=== PATIENT | female | born 1990 | race Caucasian/White ===

== ENCOUNTER 2016-04-23 20:39 | Emergency (ER) | payer OTHER ==
--- NOTE | 2016-04-23 21:15 | ED ---
General Adult HPI - General Chief complaint: Upper Respiratory Infection Stated complaint: RAMIOR,Cough,R Side Cramping (6 mos preg) Time Seen by Provider: 04/23/16 20:58 Source: patient, RN notes reviewed Mode of arrival: ambulatory Limitations: no limitations - History of Present Illness Initial comments: Patient 26-year-old female who presents emergency room today who is approximately 6 months with chief complaint of cough congestion and rhinorrhea over the last 5 days. States started with a sore throat increased rhinorrhea has progressed to cough congestion. Denies any sputum production. States feels like it's getting stuck in her throat. Patient admits to feeling some pain in the chest area when she coughs. Patient also admits some cramping in the abdomen. Denies any vaginal bleeding or discharge. Denies any other complaints. Patient denies any recent fever, chills, shortness of breath, back pain, abdominal pain, nausea or vomiting, numbness or tingling, dysuria or hematuria, constipation or diarrhea, headaches or visual changes, or any other complaints. - Related Data Home Medications Medication Instructions Recorded Confirmed Pediatric Multivit Comb #25/FA 600 mcg PO DAILY 04/23/16 04/23/16 [Flintstones Multivit Chew Tab] Allergies Allergy/AdvReac Type Severity Reaction Status Date / Time No Known Allergies Allergy Verified 04/23/16 21:03 Review of Systems ROS Statement: Those systems with pertinent positive or pertinent negative responses have been documented in the HPI. ROS Other: All systems not noted in ROS Statement are negative. Past Medical History Additional Past Medical History / Comment(s): MISSED AB -NOT SURE OF DATE History of Any Multi-Drug Resistant Organisms: None Reported Past Surgical History: Tonsillectomy Past Anesthesia/Blood Transfusion Reactions: Postoperative Nausea & Vomiting ( PONV) Past Psychological History: No Psychological Hx Reported Smoking Status: Never smoker Past Alcohol Use History: Occasional Past Drug Use History: None Reported - Past Family History Mother Family Medical History: No Reported History General Exam Limitations: no limitations Course Vital Signs 04/23/16 20:46 Temperature 98.7 F Pulse Rate 100 Respiratory 20 Rate Blood Pressure 126/72 O2 Sat by Pulse 100 Oximetry Medical Decision Making - Medical Decision Making Patient reexamined at this time shows no signs of distress. Influenza B- positive. Updated of the results. Patient will be discharged home. Advised Tamiflu not recommended after the first 48 hours. Advised follow-up the family doctor over the next 2 days. Advised that she may use Tylenol as needed for pain and fever. Patient will be sent to mother-baby to make sure everything is well with . - Lab Data Lab Results 04/23/16 04/23/16 Range/Units 21:29 21:29 Influenza Type A RNA Not Detected (Not Detectd) Influenza Type B (PCR) Detected H (Not Detectd) Group A Strep Rapid Negative (Negative) Disposition Clinical Impression: Influenza B Disposition: HOME SELF-CARE Condition: Good Instructions: Influenza (ED) Additional Instructions: Please use Tylenol as needed for body aches and fevers. Please follow-up the OB /EXTENSION SUPERVISOR and family doctor over the next 2 days or return here to emergency room if any symptoms increase or worsen or for any other concerns. Time of Disposition: 22:16
[2016-04-23 22:40] VITALS: BP 100/51; PULSE 110; RESP 18; TEMP 100.4
== END 2016-04-23 22:40 | disposition home or self-care (01) ==
LOC: EC 20:39
DX: O99.512 Diseases of the respiratory system complicating pregnancy, second trimester (principal); J10.1 Influenza due to other identified influenza virus with other respiratory manifestations; Z3A.24 24 weeks gestation of pregnancy; Z79.899 Other long term (current) drug therapy
CPT/HCPCS: 87081; 87430; 87502; 99283

== ENCOUNTER 2016-08-01 20:16 | Inpatient (IN) | payer OTHER ==
[2016-08-01 20:55] VITALS: RESP 16
[2016-08-01] MEDS ORDERED: CARBOPROST TROMETHAMINE 250 MCG/ML 1 ML AMP IM PRN (21:00)
[2016-08-01] MEDS ORDERED: OXYTOCIN 10 UNIT/ML 1 ML VIAL IM PRN (21:00)
[2016-08-01] MEDS ORDERED: PENICILLIN G POTASSIUM 5,000,000 UNIT in DEXTROSE 5% IN WATER 100 ML IV STA ×2 (21:00)
[2016-08-01] MEDS ORDERED: OXYTOCIN 20 UNITS/1000 ML NS 1,000 ML IV SCH (21:00)
[2016-08-01] MEDS ORDERED: TERBUTALINE 1 MG/ML VIAL SQ PRN (21:00)
[2016-08-01] MEDS ORDERED: LIDOCAINE 1% (PF) 10 MG/ML (30 ML SDV) SQ PRN (21:00)
[2016-08-01] MEDS ORDERED: METHYLERGONOVINE 0.2 MG/ML 1 ML AMP IM PRN (21:00)
[2016-08-01] MEDS ORDERED: LACTATED RINGERS 1,000 ML IV SCH (21:00)
[2016-08-01] MEDS ORDERED: BUTORPHANOL 1 MG/ML 1 ML VIAL IV PRN (21:02)
[2016-08-01 21:36] LABS: Basophils % (A) 0 %; CH 32.8; CHCM 35.1; Eosinophils % (A) 0 %; HCT 36.8 % (34.0-46.0); HDW 2.76; HGB 12.5 gm/dL (11.4-16.0); Luc # (Auto) 0.11; Luc % (Auto) 2; Lymphocytes # (A) 1.1 k/uL (1.0-4.8); Lymphocytes % (A) 16 %; MCV 94.1 fL (80.0-100.0); Mean Platelet Volume 8.3; Monocytes # (A) 0.4 k/uL (0-1.0); Monocytes % (A) 6 %; Neutrophils # (A) 5.2 k/uL (1.3-7.7); Neutrophils % (A) 76 %; RBC 3.91 m/uL (3.80-5.40); RDW 14.1 % (11.5-15.5); WBC 6.9 k/uL (3.8-10.6); WBC (Perox) 7.25
--- NOTE | 2016-08-01 23:25 | P.HPOB ---
History of Present Illness H&P Date: 08/01/16 Chief Complaint: 40-2/7 weeks, spontaneous rupture of membranes, prolonged The patient is a 26-year-old 4 para 1021 admitted at 40-2/7 weeks as established by last menstrual period and confirmed by seven-week ultrasound. She is admitted with documented spontaneous rupture of membranes in early active labor. Rupture of membranes occurred approximately 12-14 hours prior to admission. Her has been otherwise uncomplicated. She does have a noted marginal cord insertion for which she has undergone serial growth ultrasounds which have demonstrated normal growth with normal fluid volume. She also has a history of a LEEP procedure for which she has had normal cervical lengths in the early portion of the and no complications. She had a positive antibody titer which was too weak to titer. Group B strep status is negative. Obstetrical history 4 para 1021 with 2 early miscarriages, one of which required D&C. She had 1 term delivery which was uncomplicated. Current statistics are listed in history of present illness. EDC of 2016 was established by last menstrual period and confirmed by seven-week ultrasound. Laboratory workup demonstrates a blood type of A+ with a positive anti-body screen for anti-M which was too weak to titer. Repeat antibody screen at 28 weeks was similar. The remainder of her laboratory workup was within normal limits. HIV is mistakenly reported on the record is positive and is confirmed as negative when reviewing the labs. One hour Glucola was within normal limits and group B strep status is negative. Gynecologic history is unremarkable with no history of any infections to include STDs. Review of Systems Review of systems is confined to history of present illness. Past Medical History Additional Past Medical History / Comment(s): MISSED AB -NOT SURE OF DATE History of Any Multi-Drug Resistant Organisms: None Reported Past Surgical History: Tonsillectomy Past Anesthesia/Blood Transfusion Reactions: Postoperative Nausea & Vomiting ( PONV) Smoking Status: Never smoker - Past Family History Mother Family Medical History: No Reported History Medications and Allergies Home Medications Medication Instructions Recorded Confirmed Type Pedi Multivit No.25/Folic Acid 600 mcg PO DAILY 04/23/16 08/01/16 History [Flintstones Multivit Chew Tab] Allergies Allergy/AdvReac Type Severity Reaction Status Date / Time No Known Allergies Allergy Verified 08/01/16 20:44 Exam - Vital Signs Vital signs: Vital Signs Temp Pulse Resp BP 08/01/16 20:52 97.0 F L 81 16 119/69 Intake and Output 08/01/16 08/01/16 08/02/16 14:59 22:59 06:59 Other: Weight 61.689 kg Patient Weight 08/02/16 06:59 Weight 61.689 kg In general, this is a well-developed, well-nourished white female in no acute distress though she is uncomfortable in labor. Her heart has a regular rhythm and rate without murmur. Her lungs are clear to auscultation bilaterally in all [place]. Her abdomen is gravid, nondistended, has normal active bowel sounds , is soft, nontender, and without any palpable masses aside from uterine fundus. Her extremities are without any cyanosis, clubbing, or significant edema and are nontender to palpation bilaterally. Digital cervical examination last performed by the nursing staff demonstrates her cervix to be 8 cm dilated, 100% effaced, and -1 in station with the vertex in presentation. Spontaneous rupture of membranes has been confirmed. Results Result Diagrams: 08/01/16 21:23 Assessment and Plan (1) Prolonged rupture of membranes Status: Acute (2) Active labor at term Status: Acute Plan: The patient has been admitted for active management of labor. Given the prolonged nature of rupture of membranes, antibiotic prophylaxis has been started. She will continue to have close maternal surveillance and expectant management will be practiced. She remains a good candidate for either IV or epidural analgesia, should she so choose.
[2016-08-02] MEDS ORDERED: BENZOCAINE SPRAY 57GM TOPICAL PRN (00:25)
[2016-08-02] MEDS ORDERED: ZOLPIDEM 5 MG TAB PO PRN (00:25)
[2016-08-02] MEDS ORDERED: WITCH HAZEL 1 EACH MED..PAD TOPICAL PRN (00:25)
[2016-08-02] MEDS ORDERED: HYDROCORTISONE 2.5% RECTAL CREAM 30 GM TUBE RECTAL PRN (00:25)
[2016-08-02] MEDS ORDERED: diphenhydrAMINE 50 MG CAP PO PRN (00:25)
[2016-08-02] MEDS ORDERED: ACETAMINOPHEN TAB 325 MG TAB PO PRN (00:25)
[2016-08-02] MEDS ORDERED: diphenhydrAMINE 25 MG CAP PO PRN (00:25)
[2016-08-02] MEDS ORDERED: SIMETHICONE 80 MG CHEWABLE PO PRN (00:25)
[2016-08-02] MEDS ORDERED: Acetaminophen-Codeine 300-30mg TAB PO PRN ×2 (00:25)
[2016-08-02] MEDS ORDERED: IBUPROFEN 600 MG TAB PO PRN (00:25)
[2016-08-02] MEDS ORDERED: diphenhydrAMINE 50 MG/ML 1 ML VIAL IVP PRN ×2 (00:25)
[2016-08-02] MEDS ORDERED: LANOLIN CREAM 5 GM TUBE TOPICAL PRN (00:25)
--- NOTE | 2016-08-02 00:29 | P.PROBDLV ---
Vaginal Delivery Note - . Vaginal Delivery Note: The patient is a 26-year-old 4 para 1021 admitted at 40-2/7 weeks by good dating parameters. She is admitted with documented spontaneous rupture of membranes for approximately 14 hours prior to delivery. Her has otherwise been essentially uncomplicated. She did have a marginal cord insertion which was followed with serial growth ultrasounds with adequate interval growth. Group B strep status was negative. On labor and delivery, she had Pitocin augmentation added and made fairly rapid progress through the active phase of labor to complete and then pushed over the course of approximately 30 minutes to a normal spontaneous vaginal delivery of a viable 7 lbs. 10 oz. baby boy with Apgars of 8 at 1 minute and 9 at 5 minutes delivered in the left occiput anterior position. The placenta was delivered spontaneously , intact, and grossly normal with a grossly normal, marginally inserted three- vessel cord. There was a small first-degree midline perineal laceration which was repaired with a gjawec-sm-[id number] stitch of 3-0 chromic catgut without difficulty over 1% lidocaine block. Estimated blood loss for the case was approximately 200 mL. There were no complications. All sponge, instrument, and needle counts were correct. Both mother and infant are resting comfortably in recovery.
[2016-08-02] MEDS ORDERED: PENICILLIN G POTASSIUM 2,500,000 UNIT in DEXTROSE 5% IN WATER 100 ML IV SCH ×2 (01:00)
[2016-08-02 02:57] VITALS: BMI 24.8
[2016-08-02] MEDS: SENNOSIDES-DOCUSATE SODIUM 1 EACH TAB PO SCH ×2 (08:47→20:58)
--- NOTE | 2016-08-02 12:37 | P.PNOBGVD ---
Subjective - Subjective Patient reports: Reports appetite normal, Reports voiding normally, Reports pain well controlled, Reports ambulating normally Tower: doing well, in NICU (The is receiving prophylactic antibiotics secondary to prolonged rupture of membranes and elevated bands cells on blood count.) Objective - Latest Vital Signs Latest vital signs: Vital Signs Temp Pulse Resp BP 08/02/16 08:00 97.7 F 63 16 126/75 08/02/16 04:00 98.0 F 79 16 119/71 08/02/16 02:20 97.3 F L 70 16 118/61 08/02/16 01:50 71 16 96/50 08/02/16 01:20 71 16 94/52 08/02/16 01:05 97.2 F L 72 16 100/49 08/02/16 00:50 96.8 F L 85 16 103/50 08/02/16 00:35 82 16 99/52 08/02/16 00:20 97.2 F L 91 16 123/59 08/01/16 21:04 97.2 F L 81 20 123/81 08/01/16 20:52 97.0 F L 81 16 119/69 Intake and Output 08/01/16 08/02/16 08/02/16 22:59 06:59 14:59 Intake Total 100 682.15 Output Total 200 Balance 100 482.15 Intake: IV 100 375 Lactated Ringers 1,000 ml 100 @ 125 mls/hr IV .Q8H MO Rx#:[id number] Intake, IV Titration 7.15 Amount Oxytocin 20 Units/1000 ml 7.15 Ns 1,000 ml @ 1 MILLIUNIT/MIN 3 mls/hr IV .Q24H MO Rx#:[id number] Oral 300 Output: Estimated Blood Loss 200 Other: # Voids 1 1 Weight 61.689 kg - Exam Extremities: Present: normal Abdomen: Present: normal appearance, soft Uterus: Present: normal, firm (The uterine fundus as tonic and nontender just below the umbilicus.) Assessment and Plan (1) Prolonged rupture of membranes Current Visit: Yes Status: Acute Code(s): O42.90 - ZORA ROM, 7TH0 BETW RUPT & ONST LABR, UNSP WEEKS OF GEST SNOMED Code(s): 856049437 (2) Active labor at term Current Visit: Yes Status: Acute Code(s): IXC8671 - SNOMED Code(s): 15191943 (3) Normal spontaneous vaginal delivery Narrative/Plan: Continue routine was care. The patient is considering possible discharge home tomorrow though the will need to remain in the hospital for one further day until blood cultures return. We will discuss these options in the morning. Current Visit: Yes Status: Acute Code(s): O80 - ENCOUNTER FOR FULL-TERM UNCOMPLICATED DELIVERY SNOMED Code(s): 22133774
[2016-08-03] MEDS: SENNOSIDES-DOCUSATE SODIUM 1 EACH TAB PO SCH (08:06)
[2016-08-03 08:09] VITALS: BP 114/65; PULSE 78; TEMP 98.3
--- NOTE | 2016-08-03 08:29 | P.DS ---
Providers Date of admission: 08/01/16 20:47 Expected date of discharge: 08/03/16 Attending physician: Kj Oconnor Primary care physician: Kj Oconnor - Discharge Diagnosis(es) (1) Prolonged rupture of membranes Current Visit: Yes Status: Acute (2) Active labor at term Current Visit: Yes Status: Acute (3) Normal spontaneous vaginal delivery Current Visit: Yes Status: Acute Hospital Course: The patient is a 26-year-old 4 para 10-1 admitted at 40-2/7 weeks by good dating parameters. She is admitted with spontaneous rupture of membranes in early active labor. She does report that rupture of membranes likely occurred approximately 12-14 hours prior to admission. Her was otherwise uncomplicated. On labor and delivery, she made rapid progress after Pitocin augmentation was started to complete and then pushed to a normal spontaneous vaginal delivery of a viable 7 lbs. 10 oz. baby boy with Apgars of 8 at 1 minute and 9 at 5 minutes. Her course was unremarkable vital signs remaining stable and her temperature was afebrile throughout. The infant was taken to the special care nursery for prophylactic antibiotics pending the outcome of blood culture at 48 hours. The patient was deemed stable for discharge by day #1 and was discharged home to follow-up in the office in 6 weeks' time routinely. Discharge instructions included calling for any significantly increased bleeding or foul-smelling lochia, significantly increased fever or abdominal pain, perineal complaints, breast complaints, or anything else that concerned her. She was additionally instructed to have nothing in the vagina for at least 6 weeks time to include intercourse. She understood her instructions and agrees to follow up as noted above. Discharge medications included continue vitamins as she is opted to breast-feed or at least pump. She was otherwise to take [id number] analgesic pain medications as needed. Maternal blood type is A+ and rubella status is immune. Procedures: #1. Pitocin augmentation #2. Normal spontaneous vaginal delivery #3. Repair of perineal laceration Patient Condition at Discharge: Good Plan - Discharge Summary New Discharge Prescriptions: No Action Pedi Multivit No.25/Folic Acid [Flintstones Multivit Chew Tab] 600 mcg PO DAILY Discharge Medication List Pedi Multivit No.25/Folic Acid [Flintstones Multivit Chew Tab] 600 mcg PO DAILY 03/09/17 [History] Follow up Appointment(s)/Referral(s): Kj Oconnor MD [Primary Care Provider] - 6 Weeks Discharge Disposition: HOME SELF-CARE
[2016-08-03 09:43] LABS: HIV-1/HIV-2 Ab Screen NONREAC (NON REAC)
== END 2016-08-03 10:15 | disposition home or self-care (01) | DRG 775 ==
LOC: FBPOP 20:16 → 4FBP 20:47
PROVIDERS: ADMIT Obstetrics & Gynecology; ATTEND Obstetrics & Gynecology
PROC: 10E0XZZ Delivery of Products of Conception, External Approach (ICD-10-PCS; principal; 2016-08-02)
PROC: 0HQ9XZZ Repair Perineum Skin, External Approach (ICD-10-PCS; 2016-08-02)
DX: O42.02 Full-term premature rupture of membranes, onset of labor within 24 hours of rupture (principal); O69.89X0 Labor and delivery complicated by other cord complications, not applicable or unspecified; O70.0 First degree perineal laceration during delivery; Z37.0 Single live birth; Z3A.40 40 weeks gestation of pregnancy
CPT/HCPCS: 59025; 84112; 85025; 86850; 86900; 86901; 87389; 88307; 99213

== ENCOUNTER 2019-03-23 22:04 | Emergency (ER) | payer OTHER ==
[2019-03-23 22:16] VITALS: TEMP 98.1
--- NOTE | 2019-03-23 22:43 | ED ---
Recheck HPI - General Chief Complaint: Headache Stated Complaint: eye swell/headache Time Seen by Provider: 03/23/19 22:16 Source: patient, RN notes reviewed, old records reviewed Mode of arrival: ambulatory Limitations: no limitations - History of Present Illness Initial Comments: This 29-year-old female DF she presents today for evaluation regards to left eye swelling or edema. Patient was seen at [facility] urgent care prior to arrival started on both eyedrops as well as oral antibiotics, patient states pain just increased since prior evaluation swelling is increased around her are and she has a mild headache. She denies any fevers, maybe some chills muscle aches. No other known sick contacts or travel history patient does not wear co ntacts no vision changes. MD Complaint: other (Left eye pain and swelling) -: hour(s) Symptoms Since Prior Visit: worsening swelling, worsening redness Associated Symptoms: chills Treatments Prior to Arrival: Given Antibiotics on - Related Data Home Medications Medication Instructions Recorded Confirmed Pedi Multivit No.25/Folic Acid 600 mcg PO DAILY 04/23/16 08/01/16 [Flintstones Multivit Chew Tab] Allergies Allergy/AdvReac Type Severity Reaction Status Date / Time No Known Allergies Allergy Verified 03/23/19 22:16 Review of Systems ROS Statement: Those systems with pertinent positive or pertinent negative responses have been documented in the HPI. ROS Other: All systems not noted in ROS Statement are negative. Past Medical History Additional Past Medical History / Comment(s): MISSED AB -NOT SURE OF DATE History of Any Multi-Drug Resistant Organisms: None Reported Past Surgical History: Tonsillectomy Past Anesthesia/Blood Transfusion Reactions: Postoperative Nausea & Vomiting (PONV) Past Psychological History: No Psychological Hx Reported Smoking Status: Never smoker Past Alcohol Use History: None Reported Past Drug Use History: None Reported - Past Family History Mother Family Medical History: No Reported History General Exam Limitations: no limitations General appearance: alert, in no apparent distress Head exam: Present: atraumatic, normocephalic, normal inspection Eye exam: Present: normal appearance, PERRL, EOMI, periorbital swelling, periorbital tenderness, other (Left eye swelling and edema erythema and tender ness). Absent: scleral icterus, conjunctival injection ENT exam: Present: normal exam, mucous membranes moist Neck exam: Present: normal inspection. Absent: tenderness, meningismus, lymphadenopathy Respiratory exam: Present: normal lung sounds bilaterally. Absent: respiratory distress, wheezes, rales, rhonchi, stridor Cardiovascular Exam: Present: regular rate, normal rhythm, normal heart sounds. Absent: systolic murmur, diastolic murmur, rubs, gallop, clicks GI/Abdominal exam: Present: soft, normal bowel sounds. Absent: distended, tenderness, guarding, rebound, rigid Extremities exam: Present: normal inspection, full ROM, normal capillary refill. Absent: tenderness, pedal edema, joint swelling, calf tenderness Back exam: Present: normal inspection Neurological exam: Present: alert, oriented X3, CN II-XII intact Psychiatric exam: Present: normal affect, normal mood Skin exam: Present: warm, dry, intact, normal color. Absent: rash Course Vital Signs 03/23/19 03/23/19 22:13 23:58 Temperature 98.1 F 98.1 F Pulse Rate 109 H 91 Respiratory 20 18 Rate Blood Pressure 149/89 119/76 O2 Sat by Pulse 99 100 Oximetry - Reevaluation(s) Reevaluation #1: 03/24/19 00:06 Records reviewed Reevaluation #2: 03/24/19 00:06 Symptoms are improved here in the ER Medical Decision Making - Medical Decision Making -year-old female DF for evaluation patient presents today for evaluation regards to left eye swelling and edema CT is negative for any orbital abscess, patient has periorbital cellulitis and will continue outpatient treatment - Lab Data Result diagrams: 03/23/19 22:40 03/23/19 22:40 Lab Results 03/23/19 03/23/19 Range/Units 22:40 22:40 WBC 7.6 (3.8-10.6) k/uL RBC 4.07 (3.80-5.40) m/uL Hgb 12.3 (11.4-16.0) gm/dL Hct 36.6 (34.0-46.0) % MCV 90.1 (80.0-100.0) fL MCH 30.3 (25.0-35.0) pg MCHC 33.7 (31.0-37.0) g/dL RDW 12.4 (11.5-15.5) % Plt Count 188 (150-450) k/uL Neutrophils % 76 % Lymphocytes % 16 % Monocytes % 5 % Eosinophils % 1 % Basophils % 0 % Neutrophils # 5.7 (1.3-7.7) k/uL Lymphocytes # 1.2 (1.0-4.8) k/uL Monocytes # 0.4 (0-1.0) k/uL Eosinophils # 0.1 (0-0.7) k/uL Basophils # 0.0 (0-0.2) k/uL Sodium 140 (137-145) mmol/L Potassium 3.4 L (3.5-5.1) mmol/L Chloride 105 (98-107) mmol/L Carbon Dioxide 27 (22-30) mmol/L Anion Gap 8 mmol/L BUN 12 (7-17) mg/dL Creatinine 0.60 (0.52-1.04) mg/dL Est GFR (CKD-EPI)AfAm >90 (>60 ml/min/1.73 sqM) Est GFR (CKD-EPI)NonAf >90 (>60 ml/min/1.73 sqM) Glucose 103 H (74-99) mg/dL Calcium 9.2 (8.4-10.2) mg/dL Phosphorus 3.4 (2.5-4.5) mg/dL Magnesium 2.3 (1.6-2.3) mg/dL Total Bilirubin 0.4 (0.2-1.3) mg/dL AST 23 (14-36) U/L ALT 14 (4-34) U/L Alkaline Phosphatase 54 (38-126) U/L Total Protein 7.2 (6.3-8.2) g/dL Albumin 4.3 (3.5-5.0) g/dL - Radiology Data Radiology results: report reviewed (CT facial bones shows periorbital cellulitis), image reviewed Disposition Clinical Impression: Periorbital cellulitis of left eye Disposition: HOME SELF-CARE Condition: Good Instructions (If sedation given, give patient instructions): Periorbital Cellulitis in Adults (ED) Is patient prescribed a controlled substance at d/c from ED?: No Referrals: Erwin Ramirez MD [Primary Care Provider] - 1-2 days
[2019-03-23] MEDS ORDERED: SODIUM CHLORIDE 0.9% 1,000 ML IV STA (22:44)
[2019-03-23] MEDS ORDERED: DEXAMETHASONE SOD PHOSPHATE 10 MG/ML 1 ML VIAL IV STA (22:44)
[2019-03-23] MEDS ORDERED: KETOROLAC 30 MG/ML 1 ML VIAL IVP STA (22:44)
[2019-03-23] MEDS ORDERED: AMPICILLIN-SULBACTAM 3 GM in SODIUM CHLORIDE 0.9% 100 ML IVPB ONE (23:00)
[2019-03-23 23:09] LABS: Basophils % (A) 0 %; Eosinophils # (A) 0.1 k/uL (0-0.7); Eosinophils % (A) 1 %; HCT 36.6 % (34.0-46.0); HGB 12.3 gm/dL (11.4-16.0); Lymphocytes # (A) 1.2 k/uL (1.0-4.8); Lymphocytes % (A) 16 %; MCH 30.3 pg (25.0-35.0); MCHC 33.7 g/dL (31.0-37.0); MCV 90.1 fL (80.0-100.0); Mean Platelet Volume 8.3; Monocytes # (A) 0.4 k/uL (0-1.0); Monocytes % (A) 5 %; Neutrophils # (A) 5.7 k/uL (1.3-7.7); Neutrophils % (A) 76 %; Platelet Count 188 k/uL (150-450); RBC 4.07 m/uL (3.80-5.40); RDW 12.4 % (11.5-15.5); WBC 7.6 k/uL (3.8-10.6)
[2019-03-23 23:26] LABS: ALT 14 U/L (4-34); AST 23 U/L (14-36); African American GFR (CKD) >90 (>60 ml/min/1.73 sqM); Albumin 4.3 g/dL (3.5-5.0); Alkaline Phosphatase 54 U/L (38-126); Anion Gap 8 mmol/L; Blood Urea Nitrogen 12 mg/dL (7-17); Calcium 9.2 mg/dL (8.4-10.2); Carbon Dioxide 27 mmol/L (22-30); Chloride 105 mmol/L (98-107); Glucose 103 mg/dL (74-99); Magnesium 2.3 mg/dL (1.6-2.3); Non-African American GFR(CKD) >90 (>60 ml/min/1.73 sqM); Phosphorus 3.4 mg/dL (2.5-4.5); Potassium 3.4 mmol/L (3.5-5.1); Sodium 140 mmol/L (137-145); Total Bilirubin 0.4 mg/dL (0.2-1.3); Total Protein 7.2 g/dL (6.3-8.2)
--- NOTE | 2019-03-23 23:26 | CT ---
EXAMINATION TYPE: CT facial bones w con DATE OF EXAM: 03/23/2019 COMPARISON: None HISTORY: swelling CT DLP: 422 mGycm Automated exposure control for dose reduction was used. CONTRAST: Performed with IV Contrast, patient injected with 100 mL of Isovue 300. Multiple axial sections were obtained from the bottom of the mandible to the top of the frontal sinus es with intravenous contrast. Mandibular ring is intact. Temporomandibular joints appear normal. Zygomatic arches appear normal. Ma xilla is intact. Orbital margins are intact. There is fairly normal aeration of the paranasal sinuses . I see no bony destructive process. The temporal bones appear intact with normal aeration of the mas toid sinuses. Nasal bone is intact. There is no evidence of retro-orbital mass. The globes are symmetric. There is normal contrast opacification of the internal carotid arteries and the vertebrobasilar arter y system. I see no significant soft tissue swelling. IMPRESSION: Negative CT scan of the facial bones. No evidence of an abscess. No evidence of sinusitis.
[2019-03-23] MEDS ORDERED: PROPARACAINE 0.5% OPHTH DROPS 15 ML BTL LEFT EYE STA (23:51)
[2019-03-23 23:59] VITALS: BP 119/76; PULSE 91; RESP 18
== END 2019-03-24 00:15 | disposition home or self-care (01) ==
LOC: EC 22:04
DX: L03.213 Periorbital cellulitis (principal)
CPT/HCPCS: 36415; 80053; 83735; 84100; 85025; 87040; 70487; 99284; 96365; 96375 ×2; J1100; J1885; J0295; Q9967